=== PATIENT | male | born 1995 | race Caucasian/White ===

== ENCOUNTER 2019-11-22 12:16 | Emergency (ER) | payer MEDICAID ==
[~2019-11-22] VITALS: Ht 182.9 cm; Wt 96.4 kg
[2019-11-22 12:21] VITALS: BP 134/71
[2019-11-22 13:27] VITALS: PULSE 69; TEMP 98.4
== END 2019-11-22 13:27 | disposition home or self-care (01) ==
LOC: COL.ER 12:16
DX: M25.572 Pain in left ankle and joints of left foot (principal)